=== PATIENT | female | born 1950 | race Caucasian/White ===

== ENCOUNTER 2016-12-10 12:39 | Emergency (ER) | payer MEDICARE ==
[2016-12-10] MEDS ORDERED: NS 0.9% 1000 ML* 1,000 ML IV ONE (12:43)
[2016-12-10] MEDS ORDERED: ceFAZolin VIAL(*) 1 GM in NS 0.9% 50 ML* 50 ML IVPB ONE (12:46)
[2016-12-10 13:17] LABS: Hematocrit 32 % (35-47); Hemoglobin 10.8 g/dl (12.0-16.0); Mean Corpuscular HGB Conc 34 g/dl (31-36); Mean Corpuscular Hemoglobin 31 pg (27-31); Mean Corpuscular Volume 91 fL (80-97); Mean Platelet Volume 8 um3 (7.4-10.4); Red Cell Distribution Width 13 % (10.5-15); White Blood Count 16.3 10^3/ul (3.5-10.8)
--- NOTE | 2016-12-10 13:27 | ED ---
Kev Chand Rebecca, scribed for Adonis Leon MD on 12/10/16 at 1252 . 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 Per EMS , pt used a steak knife to induce lacerations to the R side of the neck and L wrist at 0930 this morning. Per EMS, there is no active bleeding. Associated pain is currently mild, ranked 3/10. Upon EMS arrival, pt wounds had towels and pressure applied, which alleviated bleeding. Sx aggravated by nothing. Pt denies SOB. PMHx anxiety and depression. - History of Current Complaint Stated Complaint: ANXIETY Time Seen by Provider: 12/10/16 12:43 Hx Obtained From: Patient, EMS Mechanism of Injury: Sharp/Blunt Trauma - self harm with knife Onset/Duration: Sudden Onset - 0930 Aggravating: Nothing Alleviating: Compression, Other - Towels Onset Severity: Mild Current Severity: Mild Pain Intensity: 3 Pain Scale Used: 0-10 Numeric PMH/Surg Hx/FS Hx/Imm Hx Cardiovascular History: Reports: Hx Hypertension Psychiatric History: Reports: Hx Anxiety, Hx Depression Review of Systems Negative: Shortness Of Breath Positive: Other - Lacerations to the R side of the neck and L wrist All Other Systems Reviewed And Are Negative: Yes Physical Exam - Summary Physical Exam Summary: Gen: well-appearing, no pain distress Skin: warm, color reflects adequate perfusion, dry. Laceration 6 cm in length on left wrist, can see tendons. Capillary refill in the fingers normal. On the neck there is an 8 cm laceration in length, through subcutaneous tissue and can see underlying muscle. Head: normal Eyes: EOMI, ANKUR ENT: normal Neck: supple Resp: CTA, breath sounds present Cardio: RRR Abd: soft, nontender Bowel: present Musc: normal, strength/ROM intact Neuro: normal, sensory/motor intact, A&O x3 Psych: affect/mood appropriate Triage Information Reviewed: Yes Vital Signs On Initial Exam: Initial Vitals Temp Pulse Resp BP Pulse Ox 96.7 F 57 16 109/79 97 12/10/16 12:40 12/10/16 12:40 12/10/16 12:40 12/10/16 12:40 06/03/17 12:40 Vital Signs Reviewed: Yes Diagnostics - Vital Signs Vital Signs Temp Pulse Resp BP Pulse Ox 12/10/16 13:05 65 18 116/62 100 12/10/16 12:40 96.7 F 57 16 109/79 97 - Laboratory Lab Results: Lab Results 12/10/16 Range/Units 13:08 Blood Type Pending Antibody Screen Pending Crossmatch See Detail Lab Statement: Any lab studies that have been ordered have been reviewed, and results considered in the medical decision making process. Laceration Repair Course/Dx - Course Assessment/Plan: Pt is a 66 y/o F BIBA who p/w self-induced lacerations to the R side of the neck and a L wrist. 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 She was administered Ns and Kafzol IV in the course of the ED. Discussed care of pt with [facility], who accepts pt for transfer and she will be flown to their site. Discussed pt with Blood Bank at [facility], requesting 4 units of universal donor blood. Pt stable for transfer, ED records accompanying patient. BLEEDING CONTOLLED BY PRESSURE DRESSING. ACCEPTED IN TRANSFER AT [facility] BY DR WINTER, ED. TRANSFER GUARDED CONDITION. - Clinical Impression Provider Diagnoses: Suicide attempt, Arterial hemorrhage, Laceration of neck - Physician Notifications Discussed Care Of Patient With: [facility] - Accepted pt as a transfer, she will be flown to [facility] Time Discussed With Above Provider: 13:07 - Critical Care Time Critical Care Time: 30-74 min Discharge - Discharge Plan Condition: Guarded Disposition: TRANS HIGHER LVL OF CARE FAC Referrals: Kale Rodríguez, MASTER CHEF [Primary Care Provider] - The documentation as recorded by the Kev pritchett Rebecca accurately reflects the service I personally performed and the decisions made by me, Adonis Leon MD.
[2016-12-10 13:34] LABS: ALT 12 U/L (7-52); AST 16 U/L (13-39); Albumin 3.4 g/dL (3.2-5.2); Alkaline Phosphatase 69 U/L (34-104); Anion Gap 12 mmol/L (2-11); BUN/Creatinine Ratio 12.9 (8-20); Blood Urea Nitrogen 11 mg/dL (6-24); C Reactive Protein 1.02 mg/L (< 5.00); CO2 Carbon Dioxide 21 mmol/L (22-32); Calcium 8.4 mg/dL (8.6-10.3); Chloride 93 mmol/L (101-111); Creatine Kinase 50 U/L (10-223); EGFR African American 86.1 (>60); EGFR Non-African American 66.9 (>60); Globulin 2.1 g/dL (2-4); Glucose 223 mg/dL (70-100); Lipase 26 U/L (11.0-82.0); Magnesium 1.9 mg/dL (1.9-2.7); Potassium 3.5 mmol/L (3.5-5.0); Sodium 126 mmol/L (133-145); Total Protein 5.5 g/dL (6.4-8.9)
[2016-12-10 13:40] LABS: Acetaminophen < 15 mcg/mL; Alcohol < 10 mg/dL (<10); Salicylate < 2.50 mg/dL (<30)
[2016-12-10 13:44] VITALS: BP 130/57
[2016-12-10 13:51] LABS: TSH (Thyroid Stimulating Horm) 12.44 mcIU/mL (0.34-5.60)
[2016-12-10 14:19] LABS: Urine Bacteria 1+ (Absent); Urine Bilirubin Negative (Negative); Urine Glucose 1+(50 mg/dL) (Negative); Urine Nitrite Negative (Negative)
[2016-12-10 14:21] LABS: Benzodiazepine Urine Screen None Detected (None Detect)
== END 2016-12-10 14:00 | disposition short-term general hospital (02) ==
LOC: ED 12:39
DX: S11.91XA Laceration without foreign body of unspecified part of neck, initial encounter (principal); T14.91 Suicide attempt; S61.512A Laceration without foreign body of left wrist, initial encounter; X78.1XXA Intentional self-harm by knife, initial encounter; Y93.9 Activity, unspecified; Y92.9 Unspecified place or not applicable; X58.XXXA Exposure to other specified factors, initial encounter
CPT/HCPCS: 36415; 80053; 80307; 80320; 80329; 81003; 81015; 82550; 82553; 83605; 83690; 83735; 83880; 84443; 84484; 85025; 85610; 85730; 86140; 86850; 86900; 86901; 86922; 87077; 87086; 99285; G0480; P9040

== ENCOUNTER 2017-08-30 17:48 | Emergency (ER) | payer MEDICARE ==
[2017-08-30 19:26] LABS: Urine Appearance Clear; Urine Blood Negative (Negative); Urine Color Yellow; Urine Ketones Negative (Negative); Urine Protein Negative (Negative); Urine Specific Gravity 1.009 (1.010-1.030); Urine Urobilinogen Negative (Negative)
[2017-08-30 19:40] LABS: ABS Basophils 0 10^3/ul (0-0.2); ABS Eosinophils 0.1 10^3/ul (0-0.6); ABS Lymphocytes 1.2 10^3/ul (1.0-4.8); ABS Monocytes 0.4 10^3/ul (0-0.8); ABS Neutrophils 3.5 10^3/ul (1.5-7.7); ABS Nucleated RBC 0 10^3/ul; Eosinophil % 1.5 % (0-6); Hematocrit 39 % (35-47); Hemoglobin 13.5 g/dl (12.0-16.0); Lymphocyte % 22.6 % (25-47); Mean Corpuscular HGB Conc 35 g/dl (31-36); Mean Corpuscular Hemoglobin 32 pg (27-31); Mean Corpuscular Volume 91 fL (80-97); Mean Platelet Volume 7 um3 (7.4-10.4); Nucleated Red Blood Cells % 0; Platelet Count 235 10^3/ul (150-450); Red Blood Count 4.26 10^6/ul (4.0-5.4); Red Cell Distribution Width 13 % (10.5-15); White Blood Count 5.2 10^3/ul (3.5-10.8)
[2017-08-30 19:54] LABS: EGFR Non-African American 94.5 (>60)
[2017-08-30] MEDS ORDERED: NS 0.9% 1000 ML* 1,000 ML IV ONE (20:01)
--- NOTE | 2017-08-30 21:51 | ED ---
Lit Chand Julia, scribed for Sohail Leary on 08/30/17 at 1857 . Psychiatric Complaint - HPI Summary HPI Summary: This patient is a 66 year old F presenting to [facility] due to reoccurring SI for the past year. She claims she does not have a current plan. She reports a hx of self harm where she cut her L wrist and neck in December of 2016. She brought herself her to be evaluated. She denies drug or etoh intoxication. - History Of Current Complaint Chief Complaint: EDMentalHealth Time Seen by Provider: 08/30/17 18:37 Hx Obtained From: Patient Onset/Duration: Other - months Timing: Intermittent Episode Lasting Character: Depressed Related History: Positive For: Prior Psychiatric Issues - SI with gesture Has Suicidal: Reports: Thoughts, Has Prior Attempt(s). Denies: With A Plan - Allergies/Home Medications Home Medications: Home Medications QUEtiapine TAB* [SEROquel TAB*] 25 - 50 mg PO BEDTIME 08/30/17 [History Confirmed 08/30/17] QUEtiapine TAB* [SEROquel TAB*] 25 - 50 mg PO QAM 08/30/17 [History Confirmed ] Venlafaxine EXT RELEASE CAP* [Effexor Xr CAP*] 75 mg PO DAILY 08/30/17 [History Confirmed 08/30/17] clonazePAM TAB(*) [KlonoPIN TAB(*)] 1.5 mg PO BEDTIME MDD 1.5 08/30/17 [History Confirmed 08/30/17] PMH/Surg Hx/FS Hx/Imm Hx Cardiovascular History: Reports: Hx Hypertension Psychiatric History: Reports: Hx Anxiety, Hx Depression Infectious Disease History: No Infectious Disease History: Denies: Traveled Outside the [place] in Last 30 Days - Family History Family History: Patient denies pertinent family medical history. - Social History Alcohol Use: None Substance Use Type: Reports: None Smoking Status (MU): Never Smoked Tobacco Review of Systems Constitutional: Negative - drug or etoh intoxication Positive: Depressed All Other Systems Reviewed And Are Negative: Yes Physical Exam - Summary Physical Exam Summary: Appearance: Well appearing, no pain distress Skin: warm, dry, reflects adequate perfusion Head/face: normal Eyes: EOMI, ANKUR ENT: normal Neck: supple, non-tender Respiratory: CTA, breath sounds present Cardiovascular: RRR, pulses symmetrical Abdomen: non-tender, soft Bowel: present Musculoskeletal: normal, strength/ROM intact Neuro: normal, sensory motor intact, A&Ox3 Psychiatric: depressed affect Triage Information Reviewed: Yes Vital Signs On Initial Exam: Initial Vitals Temp Pulse Resp BP Pulse Ox 98.5 F 74 18 161/89 98 08/30/17 17:51 08/30/17 17:51 08/30/17 17:51 08/30/17 17:51 08/30/17 17:51 Vital Signs Reviewed: Yes Diagnostics - Vital Signs Vital Signs Temp Pulse Resp BP Pulse Ox 08/30/17 17:51 98.5 F 74 18 161/89 98 - Laboratory Result Diagrams: 08/30/17 19:23 08/30/17 19:23 Lab Statement: Any lab studies that have been ordered have been reviewed, and results considered in the medical decision making process. Course/Dx - Course Course Of Treatment: Patient states reoccurring SI for the past year. She claims she does not have a current plan. She reports a hx of self harm where she cut her L wrist and neck in December of 2016. She brought herself her to be evaluated. She denies drug or etoh intoxication. Bloodwork was collected and patient is cleared for mental health evaluation. - Differential Dx/Clinical Impression Provider Diagnosis: Depression, Suicidal ideation Discharge - Discharge Plan Condition: Stable Disposition: OTHER Discharge Disposition Comment: Patient is signed out to Dr. Hensley at shift change. Referrals: Kale Rodríguez, ADMINISTRATIVE FELLOW [Primary Care Provider] - The documentation as recorded by the Lit pritchett Julia accurately reflects the service I personally performed and the decisions made by , Sohail Leary.
--- NOTE | 2017-08-30 22:21 | ED ---
Progress - Progress Note Progress Note: assumed care from Dr Leary. Pt undergoing eval. 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 Course/Dx - Course Course Of Treatment: Patient states reoccurring SI for the past year. She claims she does not have a current plan. She reports a hx of self harm where she cut her L wrist and neck in December of 2016. She brought herself her to be evaluated. She denies drug or etoh intoxication. Bloodwork was collected and patient is cleared for mental health evaluation. Pt cleared in for discharge by Dr Bianchi. Has 3 upcoming therapy appts in the near future. Discharge in improved condition. - Diagnoses Provider Diagnoses: Depression, Suicidal ideation
[2017-08-30 22:59] VITALS: BP 98/75
== END 2017-08-30 22:55 | disposition home or self-care (01) ==
LOC: ED 17:48
DX: F32.9 Major depressive disorder, single episode, unspecified (principal); R45.851 Suicidal ideations; I10 Essential (primary) hypertension; F41.9 Anxiety disorder, unspecified
CPT/HCPCS: 36415; 80053; 80307; 80320; 80329; 81003; 81015; 84443; 85025; 87086; 96360; 99284; G0480

== ENCOUNTER 2018-01-28 18:04 | Emergency (ER) | payer MEDICARE ==
[2018-01-28 18:56] LABS: ABS Basophils 0 10^3/ul (0-0.2); ABS Eosinophils 0.1 10^3/ul (0-0.6); ABS Lymphocytes 0.9 10^3/ul (1.0-4.8); ABS Monocytes 0.3 10^3/ul (0-0.8); ABS Neutrophils 4.9 10^3/ul (1.5-7.7); ABS Nucleated RBC 0 10^3/ul; Eosinophil % 0.8 % (0-6); Hematocrit 38 % (35-47); Hemoglobin 13.3 g/dl (12.0-16.0); Lymphocyte % 14.9 % (25-47); Mean Corpuscular HGB Conc 35 g/dl (31-36); Mean Corpuscular Hemoglobin 32 pg (27-31); Mean Corpuscular Volume 93 fL (80-97); Mean Platelet Volume 6.5 um3 (7.4-10.4); Nucleated Red Blood Cells % 0; Platelet Count 255 10^3/ul (150-450); Red Blood Count 4.11 10^6/ul (4.00-5.40); Red Cell Distribution Width 13 % (10.5-15); White Blood Count 6.2 10^3/ul (3.5-10.8)
[2018-01-28 19:12] LABS: EGFR Non-African American 83.5 (>60)
--- OUTSIDE RECORDS SUMMARY | 2018-01-28 19:36 | XMS REPORT ---
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 Cigarette Use Former Cigarette Smoker smoked through college, nothing since then ETOH Use Denies alcohol use Recreational Drug Use Denies Drug Use some drug use in college Daily Caffeine Does Not Consume Caffeine Enjoy Exercising Enjoys exercising 10 MINUTES OF YOGA AND REBOUND EXERCISES, TRIES TO WALK MOST MORNINGS, GARDENING Allergies, Adverse Reactions, Alerts Date Description Reaction Status Severity Comments 12/16/2013 Novocain Urticaria active Moderate 12/16/2013 Preservative active 12/16/2013 Epinephrine active 12/16/2013 Aspirin active 12/16/2013 Sulfa active Medications Medication Date Status Form Strength Qnty SIG Indications Ordering Provider Metoprolol 01/04 Active Tablets 50mg 60tab take 1 tablet Shawnti Tartrate s twice a day Russel Rodríguez, for blood [facility] pressure Polyethylene 10/23 Active Powder 3350NF 527un 1 cap full in K59.00 Shawnti Glycol 335 its glass of Russel Rodríguez, water twice [facility] daily Magnesium 10/20 Active Solution 1.745GM/3 296ml drink one Shawnti Citrate 0ML bottle today Russel Rodríguez, for [facility] constipation Immune Enhance 12/16 Active Tablets Russel Rodríguez, [facility] Probiotic Active Capsules 1 by mouth Unknown /0000 every day Vitamin B-12 Active Tablets 1000mcg 1 by mouth Unknown /0000 every day- sublingual- for vitamin b12 deficiency Kelp Active Tablets 100mg Unknown /0000 Clonazepam Active Tablets 1mg Take 1 And Unknown /0000 1/2 Tablet By Mouth AT Bedtime as Needed For Insomnia Maxi Sodium Chloride Active Tablets 1gm 270ta take one Shawnti / bs tablet by Russel Rodríguez, mouth three [employer] times a day Venlafaxine HCL Active Caps ER 300mg Take One Unknown ER / 24HR Capsule By Mouth Every Morning Senna Active Tablets 8.6mg 60tab take one Shawnti s tablet by Russel Rodríguez, mouth twice a [facility] day Quetiapine Active Tablets 100mg Take 1 1 2 Unknown Fumarate /0000 Tablets By Mouth AT Bedtime Mirtazapine Active Tablets 15mg Take One Unknown /0000 Tablet By Mouth AT Bedtime Metoprolol 12/12 Hx Tablets 25mg 60tab take one Shawnti Tartrate s tablet by Russel Rodríguez, - mouth twice a [employer] 01/04 day for heart /2018 and blood pressure....r eplaces propranolol Propranolol HCL 11/23 Hx Caps ER 60mg 30cap 1 by mouth Shawnti ER 24HR s every day Russel Rodríguez, - [facility] 12/12 Trazodone HCL 11/25 Hx Tablets 50mg 30tab take 1 tablet F41.9 Ajya s by mouth at Russel Rodríguez, - bedtime for [facility] 12/29 sleep Zinc 11/18 Hx Tablets 25mg 1 by mouth every day Russel Rodríguez, - [facility] 09/22 Citalopram 11/18 Hx Tablets 10mg 30tab take one F41.9 Shawnti Hydrobromide /2016 s tablet by Russel Rodríguez, - mouth every [employer] 12/29 day for anxiety Nitrofurantoin 10/21 Hx Capsules 100mg 14cap 1 by mouth N39.0 Shawnti Monohyd Macro s twice a day x Russel Rodríguez, - 7 days [employer] 10/28 Citalopram 08/19 Hx Tablets 20mg 90tab 1 by mouth F41.9 Shawnti Hydrobromide s every day Russel Rodríugez, - [facility] 11/18 Lorazepam 08/12 Hx Tablets 1mg 45tab take one tab F41.9 Shawnti /2016 s up to three Russel Rodríguez, - times daily [facility] 12/29 if needed for anxiety Fluoxetine HCL 08/01 Hx Capsules 20mg 90cap 1 by mouth F41.9 Shawnti (PMDD) /2016 s daily for Russel Rodríguez, - anxiety, [facility] 10/21 replaces citalopram L-Tryptophan 06/28 Hx Tablets 500mg 1 po before bed Russel Rodríguez, - [facility] 11/23 Macrobid 05/06 Hx Capsules 100mg 10cap take one Kris s capsule by Niall - mouth twice a , MD Ciprofloxacin 04/29 Hx Tablets 250mg 10tab 1 by mouth N39.0 Kanu HCL /2015 s twice a day [place] - for 5 days III, 06/28 for uti [facility] Lorazepam 01/17 Hx Tablets 0.5mg 45tab 1 or 2 by F41.9 Shawnti s mouth every Russel Rodríguez, - night at [facility]- 08/12 bedtime for sleep if needed Citalopram 11/25 Hx Tablets 20mg 90tab 1 by mouth F41.9 Shawnti Hydrobromide s every day Russel Rodríguez, - [facility] 08/01 Lorazepam 11/05 Hx Tablets 1mg 45tab take one or F41.9 Shawnt /2015 s two by mouth Russel Rodríguez, - every night [facility] 01/17 at bedtime needed for anxiety Seroquel 11/04 Hx Tablets 50mg 30tab take one G47.00 Shawnt s tablet by Russel Rodríguez, - mouth at [facility]- 11/04 bedtime Trazodone HCL 11/04 Hx Tablets 50mg 30tab take 1 G47.00 nt s tablet by Russel Rodríguez, - mouth at [facility] 11/05 bedtime needed for sleep Citalopram 10/26 Hx Tablets 10mg 30tab 07/11 tab daily F41.9 Shawnti Hydrobromide s for 4 days Russel Rodríguez, - then increase [facility] 11/25 to one tab mouth daily Ativan 10/19 Hx Tablets 0.5mg 30tab 07/11 or 1 F41.9 Shawnt s pills before Russel Rodríguez, - bed if needed [facility] 11/05 for sleep /2015 Hydrocortisone 12/16 Hx Cream 1% apply small amount to Russel Rodríguez, - affected area [facility] 10/21 twice a day /2016 Iron 00/ Hx Tablets 325(65Fe) Twice Daily Unknown /0000 mg By Mouth - 12/29 Vitamin B12 Hx Tablets 1000mcg sl every day Unknown /0000 ER - 12/29 Folic Acid 00 Hx Tablets 1mg 1 by mouth Unknown /0000 every day - 09/22 Cortisol Coffee Host 00/00 Hx Tablets Unknown /0000 - 09/22 Hydroxyzine HCL 00 Hx Tablets 25mg Take One Unknown /0000 Tablet By - Mouth Every 4 12/29 Hours Needed For Itching And Anxie Risperidone 00 Hx Tablets 0.5mg Take One Unknown /0000 Tablet By - Mouth AT 12/29 Bed Ferrous Sulfate 00 Hx Tablets 325(65Fe) 270ta take one Shawnti /0000 mg bs tablet by Russel Rodríguez, - mouth three [facility] 09/22 times a day Cephalexin Hx Capsules 500mg Take One Unknown /0000 Capsule By - Mouth Four 12/29 Times A Day Propranolol HCL Hx Tablets 20mg 30tab take one Shawnti /0000 s tablet by Russel Rodríguez, - mouth every [facility] Immunizations CPT Code Status Date Vaccine Lot # [id number] Refused 12/12/2017 Influenza Virus Vaccine, Quadrivalent, 3 Yr > Quad , Preserv Free Vital Signs Date Vital Result Comment 01/04/2018 Weight 114.00 lb Weight in kg's 51.710 BP Systolic 152 mmHg BP Diastolic 84 mmHg Heart Rate 68 /min Body Temperature 97.2 F Respiratory Rate 14 /min 12/12/2017 Weight 113.00 lb Weight in kg's 51.257 BP Systolic 120 mmHg BP Diastolic 70 mmHg Heart Rate 70 /min Body Temperature 98.0 F Respiratory Rate 14 /min 11/23/2017 Weight 112.00 lb Weight in kg's 50.803 BP Systolic 130 mmHg BP Diastolic 90 mmHg Heart Rate 65 /min Body Temperature 98.6 F Respiratory Rate 16 /min O2 % BldC Oximetry 98 % 11/18/2017 Weight 111.00 lb Weight in kg's 50.350 BP Systolic 144 mmHg BP Diastolic 86 mmHg Heart Rate 56 /min Body Temperature 97.0 F O2 % BldC Oximetry 97 % 10/23/2017 Weight 110.00 lb Weight in kg's 49.896 BP Systolic 148 mmHg BP Diastolic 82 mmHg Body Temperature 97.0 F 03/27/2017 Weight 119.00 lb Weight in kg's 53.978 BP Systolic 130 mmHg BP Diastolic 70 mmHg Heart Rate 72 /min Body Temperature 97.9 F Respiratory Rate 14 /min 12/29/2016 Weight 125.00 lb Weight in kg's 56.700 BP Systolic 148 mmHg BP Diastolic 80 mmHg Heart Rate 77 /min Body Temperature 97.1 F Respiratory Rate 18 /min O2 % BldC Oximetry 99 % 12/02/2016 Weight 126.00 lb Weight in kg's 57.154 BP Systolic 168 mmHg BP Diastolic 88 mmHg BP Systolic Recheck 154 mmHg BP Diastolic Recheck 88 mmHg Heart Rate 66 /min Body Temperature 97.5 F Respiratory Rate 12 /min O2 % BldC Oximetry 99 % 11/25/2016 Weight 127.00 lb Weight in kg's 57.607 BP Systolic 150 mmHg BP Diastolic 80 mmHg Heart Rate 72 /min Body Temperature 96.5 F Respiratory Rate 12 /min 11/18/2016 Weight 131.00 lb Weight in kg's 59.422 BP Systolic 140 mmHg BP Diastolic 98 mmHg Heart Rate 60 /min Body Temperature 96.4 F Respiratory Rate 16 /min O2 % BldC Oximetry 99 % 10/21/2016 Weight 131.00 lb Weight in kg's 59.422 BP Systolic 138 mmHg BP Diastolic 86 mmHg Heart Rate 62 /min Body Temperature 98.6 F Respiratory Rate 14 /min O2 % BldC Oximetry 99 % 08/01/2016 Weight 135.00 lb Weight in kg's 61.236 BP Systolic 152 mmHg BP Diastolic 88 mmHg Heart Rate 68 /min Body Temperature 97.5 F Respiratory Rate 16 /min O2 % BldC Oximetry 99 % 06/28/2016 Weight 137.00 lb Weight in kg's 62.143 BP Systolic 152 mmHg no BP med BP Diastolic 78 mmHg no BP med Heart Rate 66 /min Body Temperature 98.1 F Respiratory Rate 17 /min O2 % BldC Oximetry 98 % 04/29/2016 Weight 140.00 lb Weight in kg's 63.504 BP Systolic 152 mmHg BP Diastolic 86 mmHg Heart Rate 60 /min Body Temperature 96.5 F Respiratory Rate 18 /min 04/26/2016 Weight 140.00 lb Weight in kg's 63.504 BP Systolic 170 mmHg BP Diastolic 80 mmHg Heart Rate 76 /min 03/15/2016 Weight 138.00 lb Weight in kg's 62.597 BP Systolic 160 mmHg BP Diastolic 80 mmHg Heart Rate 68 /min 02/12/2016 Weight 138.00 lb Weight in kg's 62.597 BP Systolic 180 mmHg BP Diastolic 90 mmHg Heart Rate 64 /min 01/12/2016 Weight 140.00 lb Weight in kg's 63.504 BP Systolic 180 mmHg BP Diastolic 90 mmHg Heart Rate 72 /min Body Temperature 98.6 F 12/11/2015 Weight 144.00 lb Weight in kg's 65.318 BP Systolic 162 mmHg BP Diastolic 97 mmHg Heart Rate 65 /min O2 % BldC Oximetry 98 % 11/26/2015 Weight 145.00 lb Weight in kg's 65.772 BP Systolic 130 mmHg BP Diastolic 80 mmHg Heart Rate 63 /min Body Temperature 97.1 F O2 % BldC Oximetry 99 % 11/12/2015 Weight 146.00 lb Weight in kg's 66.226 BP Systolic 140 mmHg BP Diastolic 80 mmHg Heart Rate 60 /min 11/05/2015 Weight 149.00 lb Weight in kg's 67.586 BP Systolic 160 mmHg BP Diastolic 78 mmHg Heart Rate 68 /min 10/27/2015 Weight 149.00 lb Weight in kg's 67.586 BP Systolic 120 mmHg BP Diastolic 70 mmHg Heart Rate 68 /min 10/20/2015 Weight 147.00 lb Weight in kg's 66.679 BP Systolic 148 mmHg BP Diastolic 78 mmHg Heart Rate 68 /min 03/24/2015 Weight 153.00 lb Weight in kg's 69.401 BP Systolic 166 mmHg BP Diastolic 84 mmHg Heart Rate 68 /min Height 69.5 inches 5'9.50" BMI (Body Mass Index) 22.3 kg/m2 03/06/2015 Weight 150.00 lb Weight in kg's 68.040 BP Systolic 140 mmHg BP Diastolic 84 mmHg Heart Rate 68 /min 12/16/2013 Weight 153.00 lb Weight in kg's 69.401 BP Systolic 110 mmHg BP Diastolic 70 mmHg Heart Rate 72 /min Height 68.25 inches 5'8.25" BMI (Body Mass Index) 23.1 kg/m2 11/27/2008 Weight 164.00 lb Weight in kg's 74.390 BP Systolic 120 mmHg BP Diastolic 70 mmHg Heart Rate 84 /min Height 69.5 inches 5'9.50" BMI (Body Mass Index) 23.9 kg/m2 Results Test Date Test Result H/L Range Note Urine Culture And 11/18/2017 Urine Culture SEE RESULT BELOW 1 Sensitivities Urine DIP 11/18/2017 Leukocytes ++ Neg Urine Nitrites neg Neg Urobilinogen norm Norm Total Protein, Urine neg Neg Urine pH 8 High 5-6 Urine Blood 250 High Neg Specific Council 1.010 1.01-1.02 Urine Ketones neg Neg Urine Bilirubin neg Neg Urine Glucose norm Norm Urinalysis Profile 09/26/2017 Urine Color Yellow Urine Appearance Clear Urine Specific Council 1.006 Low 1.010-1.030 Urine pH 6.0 5-9 Urine Urobilinogen Negative Negative Urine Ketones Trace Negative Urine Protein Negative Negative Urine Leukocytes 3+ Negative Urine Blood Negative Negative Urine Nitrite Negative Negative Urine Bilirubin Negative Negative Urine Glucose Negative Negative Urine White Blood Cell 3+(>20/hpf) Absent Urine Red Blood Cell Absent Absent Urine Bacteria Absent Absent Urine Squamous Epithelial Cell Present Absent Urine Drug SCR ED & 09/26/2017 Amphetamine Ur Screen None Detected None Detect Pain Clinic Barbiturates Urine Screen None Detected None Detect Benzodiazepine Urine Screen None Detected None Detect Urine Cannabinoids Screen None Detected None Detect Urine Cocaine Screen None Detected None Detect Urine Opiates Screen None Detected None Detect Urine Phencyclidine Screen None Detected None Detect 2 Urine Culture And Sensitivities 09/26/2017 Urine Culture SEE RESULT BELOW 3 Laboratory test finding 08/30/2017 Urine Culture SEE RESULT BELOW 4 Urinalysis Profile 08/30/2017 Urine Color Yellow Urine Appearance Clear Urine Specific Council 1.009 Low 1.010-1.030 Urine pH 7.0 5-9 Urine Urobilinogen Negative Negative Urine Ketones Negative Negative Urine Protein Negative Negative Urine Leukocytes Trace Negative Urine Blood Negative Negative Urine Nitrite Negative Negative Urine Bilirubin Negative Negative Urine Glucose Negative Negative Urine White Blood Cell 1+(6-10/hpf) Absent Urine Red Blood Cell Trace(0-2/hpf) Absent Urine Bacteria Absent Absent Urine Squamous Epithelial Cell Present Absent Urine Drug SCR ED & 08/30/2017 Amphetamine Ur Screen None Detected None Detect Pain Clinic Barbiturates Urine Screen None Detected None Detect Benzodiazepine Urine Screen None Detected None Detect Urine Cannabinoids Screen None Detected None Detect Urine Cocaine Screen None Detected None Detect Urine Opiates Screen None Detected None Detect Urine Phencyclidine Screen None Detected None Detect 5 Laboratory test finding 08/30/2017 Acetaminophen < 15 g/mL 6 Alcohol < 10 mg/dL <10 Salicylate < 2.50 mg/dL <30 TSH (Thyroid Stimulating Horm) 5.06 mcIU/mL 0.34-5.60 Comp Metabolic Panel 08/30/2017 Sodium 126 mmol/L Low 133-145 Potassium 4.5 mmol/L 3.5-5.0 Chloride 92 mmol/L Low 101-111 Co2 Carbon Dioxide 28 mmol/L 22-32 Anion Gap 6 mmol/L 2-11 Glucose 101 mg/dL High 70-100 Blood Urea Nitrogen 11 mg/dL 6-24 Creatinine 0.63 mg/dL 0.51-0.95 BUN/Creatinine Ratio 17.5 8-20 Calcium 9.3 mg/dL 8.6-10.3 Total Protein 7.0 g/dL 6.4-8.9 Albumin 4.4 g/dL 3.2-5.2 Globulin 2.6 g/dL 2-4 Albumin/Globulin Ratio 1.7 1-3 Total Bilirubin 0.40 mg/dL 0.2-1.0 Alkaline Phosphatase 88 U/L 34-104 Alt 10 U/L 7-52 Ast 18 U/L 13-39 Egfr Non- 94.5 >60 Egfr 121.6 >60 7 CBC Auto Diff 08/30/2017 White Blood Count 5.2 10^3/uL 3.5-10.8 Red Blood Count 4.26 10^6/uL 4.0-5.4 Hemoglobin 13.5 g/dL 12.0-16.0 Hematocrit 39 % 35-47 Mean Corpuscular Volume 91 fL 80-97 Mean Corpuscular Hemoglobin 32 pg High 27-31 Mean Corpuscular HGB Conc 35 g/dL 31-36 Red Cell Distribution Width 13 % 10.5-15 Platelet Count 235 10^3/uL 150-450 Mean Platelet Volume 7 um3 Low 7.4-10.4 Abs Neutrophils 3.5 10^3/uL 1.5-7.7 Abs Lymphocytes 1.2 10^3/uL 1.0-4.8 Abs Monocytes 0.4 10^3/uL 0-0.8 Abs Eosinophils 0.1 10^3/uL 0-0.6 Abs Basophils 0 10^3/uL 0-0.2 Abs Nucleated RBC 0 10^3/uL Granulocyte % 67.5 % 38-83 Lymphocyte % 22.6 % Low 25-47 Monocyte % 7.5 % 1-9 Eosinophil % 1.5 % 0-6 Basophil % 0.9 % 0-2 Nucleated Red Blood Cells % 0 Comp Metabolic Panel 05/19/2017 Sodium 130 mmol/L Low 133-145 Potassium 3.8 mmol/L 3.5-5.0 Chloride 95 mmol/L Low 101-111 Co2 Carbon Dioxide 31 mmol/L 22-32 Anion Gap 4 mmol/L 2-11 Glucose 57 mg/dL Low 70-100 Blood Urea Nitrogen 7 mg/dL 6-24 Creatinine 0.61 mg/dL 0.51-0.95 BUN/Creatinine Ratio 11.5 8-20 Calcium 8.7 mg/dL 8.6-10.3 Total Protein 6.2 g/dL Low 6.4-8.9 Albumin 3.9 g/dL 3.2-5.2 Globulin 2.3 g/dL 2-4 Albumin/Globulin Ratio 1.7 1-3 Total Bilirubin 0.60 mg/dL 0.2-1.0 Alkaline Phosphatase 89 U/L 34-104 Alt 8 U/L 7-52 Ast 15 U/L 13-39 Egfr Non- 98.1 >60 Egfr 126.2 >60 8 Sodium 24HR Urine 03/31/2017 Urine Collection Time 24 9 Urine Total Volume 4700 mL 9 Urine Random Sodium 33 mmol/L 9 Urine Sodium/24HR 155 mmol/24 40-220 9 Laboratory test finding 03/31/2017 Miscellaneous Test C 9, 10 Laboratory test finding 03/27/2017 Ferritin 26.4 ng/mL 11-307 11 Iron & Iron Binding Capacity 03/27/2017 Iron 67 g/dL 50-212 Unsaturated Iron Binding 296 g/dL Total Iron Binding Capacity 363 g/dL 250-450 % Iron Saturation 18 % 15-55 Laboratory test finding 03/27/2017 Magnesium 2.1 mg/dL 1.9-2.7 12 Comp Metabolic Panel 03/27/2017 Sodium 128 mmol/L Low 133-145 Potassium 3.9 mmol/L 3.5-5.0 Chloride 96 mmol/L Low 101-111 Co2 Carbon Dioxide 27 mmol/L 22-32 Anion Gap 5 mmol/L 2-11 Glucose 94 mg/dL 70-100 Blood Urea Nitrogen 11 mg/dL 6-24 Creatinine 0.59 mg/dL 0.51-0.95 BUN/Creatinine Ratio 18.6 8-20 Calcium 9.0 mg/dL 8.6-10.3 Total Protein 6.2 g/dL Low 6.4-8.9 Albumin 4.0 g/dL 3.2-5.2 Globulin 2.2 g/dL 2-4 Albumin/Globulin Ratio 1.8 1-3 Total Bilirubin 0.40 mg/dL 0.2-1.0 Alkaline Phosphatase 103 U/L 34-104 Alt 9 U/L 7-52 Ast 17 U/L 13-39 Egfr Non- 102.0 >60 Egfr 131.2 >60 13 Laboratory test finding 03/27/2017 Hepatitis C Antibody Nonreactive Nonreactive 14 CBC Auto Diff 03/27/2017 White Blood Count 4.6 10^3/uL 3.5-10.8 Red Blood Count 4.21 10^6/uL 4.0-5.4 Hemoglobin 12.7 g/dL 12.0-16.0 Hematocrit 37 % 35-47 Mean Corpuscular Volume 88 fL 80-97 Mean Corpuscular Hemoglobin 30 pg 27-31 Mean Corpuscular HGB Conc 34 g/dL 31-36 Red Cell Distribution Width 13 % 10.5-15 Platelet Count 217 10^3/uL 150-450 Mean Platelet Volume 7 um3 Low 7.4-10.4 Abs Neutrophils 3.1 10^3/uL 1.5-7.7 Abs Lymphocytes 1.1 10^3/uL 1.0-4.8 Abs Monocytes 0.3 10^3/uL 0-0.8 Abs Eosinophils 0 10^3/uL 0-0.6 Abs Basophils 0 10^3/uL 0-0.2 Abs Nucleated RBC 0 10^3/uL Granulocyte % 67.1 % 38-83 Lymphocyte % 24.5 % Low 25-47 Monocyte % 7.5 % 1-9 Eosinophil % 0 % 0-6 Basophil % 0.9 % 0-2 Nucleated Red Blood Cells % 0 Laboratory test 03/27/2017 TSH (Thyroid Stim Horm) 3.55 mcIU/mL 0.34- 5.60 15 finding Lipid Profile 03/27/2017 Triglycerides 105 mg/dL 16 (Trig/Chol/HDL) Cholesterol 173 mg/dL 17 HDL Cholesterol 65.8 mg/dL 18 LDL Cholesterol 86 mg/dL 19 Laboratory test 03/27/2017 Hemoglobin A1c (Glyco 5.2 % Less than 6.0 20 finding HGB) Basic Metabolic Panel 02/03/2017 Sodium 127 mmol/L Low 133-145 Potassium 4.3 mmol/L 3.5-5.0 Chloride 91 mmol/L Low 101-111 Co2 Carbon Dioxide 31 mmol/L 22-32 Anion Gap 5 mmol/L 2-11 Glucose 77 mg/dL 70-100 Blood Urea Nitrogen 10 mg/dL 6-24 Creatinine 0.60 mg/dL 0.51-0.95 BUN/Creatinine Ratio 16.7 8-20 Calcium 8.7 mg/dL 8.6-10.3 Egfr Non- 100.0 >60 Egfr 128.6 >60 21 Laboratory test finding 02/03/2017 Ferritin 25.4 ng/mL 11-307 22 Iron & Iron Binding Capacity 02/03/2017 Iron 87 g/dL 50-212 Unsaturated Iron Binding 298 g/dL Total Iron Binding Capacity 385 g/dL 250-450 % Iron Saturation 23 % 15-55 CBC Auto Diff 02/03/2017 White Blood Count 6.4 10^3/uL 3.5-10.8 Red Blood Count 4.20 10^6/uL 4.0-5.4 Hemoglobin 13.1 g/dL 12.0-16.0 Hematocrit 38 % 35-47 Mean Corpuscular Volume 91 fL 80-97 Mean Corpuscular Hemoglobin 31 pg 27-31 Mean Corpuscular HGB Conc 34 g/dL 31-36 Red Cell Distribution Width 13 % 10.5-15 Platelet Count 239 10^3/uL 150-450 Mean Platelet Volume 8 um3 7.4-10.4 Abs Neutrophils 4.5 10^3/uL 1.5-7.7 Abs Lymphocytes 1.4 10^3/uL 1.0-4.8 Abs Monocytes 0.4 10^3/uL 0-0.8 Abs Eosinophils 0.1 10^3/uL 0-0.6 Abs Basophils 0.1 10^3/uL 0-0.2 Abs Nucleated RBC 0.01 10^3/uL Granulocyte % 69.5 % 38-83 Lymphocyte % 21.4 % Low 25-47 Monocyte % 6.6 % 1-9 Eosinophil % 1.7 % 0-6 Basophil % 0.8 % 0-2 Nucleated Red Blood Cells % 0.1 CBC Auto Diff 12/29/2016 White Blood Count 5.0 10^3/uL 3.5-10.8 Red Blood Count 3.32 10^6/uL Low 4.0-5.4 Hemoglobin 10.3 g/dL Low 12.0-16.0 Hematocrit 31 % Low 35-47 Mean Corpuscular Volume 92 fL 80-97 Mean Corpuscular Hemoglobin 31 pg 27-31 Mean Corpuscular HGB Conc 34 g/dL 31-36 Red Cell Distribution Width 14 % 10.5-15 Platelet Count 268 10^3/uL 150-450 Mean Platelet Volume 7 um3 Low 7.4-10.4 Abs Neutrophils 3.4 10^3/uL 1.5-7.7 Abs Lymphocytes 0.9 10^3/uL Low 1.0-4.8 Abs Monocytes 0.5 10^3/uL 0-0.8 Abs Eosinophils 0.1 10^3/uL 0-0.6 Abs Basophils 0.1 10^3/uL 0-0.2 Abs Nucleated RBC 0 10^3/uL Granulocyte % 68.6 % 38-83 Lymphocyte % 18.0 % Low 25-47 Monocyte % 9.4 % High 1-9 Eosinophil % 2.9 % 0-6 Basophil % 1.1 % 0-2 Nucleated Red Blood Cells % 0 Basic Metabolic Panel 12/29/2016 Sodium 129 mmol/L Low 133-145 Potassium 4.1 mmol/L 3.5-5.0 Chloride 96 mmol/L Low 101-111 Co2 Carbon Dioxide 28 mmol/L 22-32 Anion Gap 5 mmol/L 2-11 Glucose 94 mg/dL 70-100 Blood Urea Nitrogen 9 mg/dL 6-24 Creatinine 0.53 mg/dL 0.51-0.95 BUN/Creatinine Ratio 17.0 8-20 Calcium 8.4 mg/dL Low 8.6-10.3 Egfr Non- 115.4 >60 Egfr 148.4 >60 23 Laboratory test finding 12/10/2016 Urine Culture SEE RESULT BELOW 24, 25 Urinalysis Profile 12/10/2016 Urine Color Yellow 24 Urine Appearance Cloudy 24 Urine Specific Council 1.009 Low 1.010-1.030 24 Urine pH 7.0 5-9 24 Urine Urobilinogen Negative Negative 24 Urine Ketones Negative Negative 24 Urine Protein 1+(30 mg/dL) Negative 24 Urine Leukocytes 2+ Negative 24 Urine Blood 2+ Negative 24 Urine Nitrite Negative Negative 24 Urine Bilirubin Negative Negative 24 Urine Glucose 1+(50 mg/dL) Negative 24 Urine White Blood Cell 3+(>20/hpf) Absent 24 Urine Red Blood Cell 1+(3-5/hpf) Absent 24 Urine Bacteria 1+ Absent 24 Urine Squamous Epithelial Cell Present Absent 24 Urine Hyaline Casts Present Absent 24 Inr/Protime 12/10/2016 Inr 1.13 High 0.89-1.11 24 Laboratory test finding 12/10/2016 Acetaminophen < 15 g/mL 24, 26 Alcohol < 10 mg/dL <10 24 Salicylate < 2.50 mg/dL <30 24 TSH (Thyroid Stimulating Horm) 12.44 mcIU/mL High 0.34-5.60 24 CKMB 12/10/2016 CKMB ng/mL 4.5 ng/mL 0.6-6.3 24 Laboratory test finding 12/10/2016 Magnesium 1.9 mg/dL 1.9-2.7 24 Lipase 26 U/L 11.0-82.0 24 Creatine Kinase 50 U/L 10-223 24 C Reactive Protein 1.02 mg/L < 5.00 24, 27 Troponin-I (TnI) 0.00 ng/mL <0.04 24, 28 Comp Metabolic Panel 12/10/2016 Sodium 126 mmol/L Low 133-145 24 Potassium 3.5 mmol/L 3.5-5.0 24 Chloride 93 mmol/L Low 101-111 24 Co2 Carbon Dioxide 21 mmol/L Low 22-32 24 Anion Gap 12 mmol/L High 2-11 24 Glucose 223 mg/dL High 70-100 24 Blood Urea Nitrogen 11 mg/dL 6-24 24 Creatinine 0.85 mg/dL 0.51-0.95 24 BUN/Creatinine Ratio 12.9 8-20 24 Calcium 8.4 mg/dL Low 8.6-10.3 24 Total Protein 5.5 g/dL Low 6.4-8.9 24 Albumin 3.4 g/dL 3.2-5.2 24 Globulin 2.1 g/dL 2-4 24 Albumin/Globulin Ratio 1.6 1-3 24 Total Bilirubin 0.60 mg/dL 0.2-1.0 24 Alkaline Phosphatase 69 U/L 34-104 24 Alt 12 U/L 7-52 24 Ast 16 U/L 13-39 24 Egfr Non- 66.9 >60 24 Egfr 86.1 >60 24, 29 CBC Auto Diff 12/10/2016 White Blood Count 16.3 10^3/uL High 3.5-10.8 24 Red Blood Count 3.50 10^6/uL Low 4.0-5.4 24 Hemoglobin 10.8 g/dL Low 12.0-16.0 24 Hematocrit 32 % Low 35-47 24 Mean Corpuscular Volume 91 fL 80-97 24 Mean Corpuscular Hemoglobin 31 pg 27-31 24 Mean Corpuscular HGB Conc 34 g/dL 31-36 24 Red Cell Distribution Width 13 % 10.5-15 24 Platelet Count 274 10^3/uL 150-450 24 Mean Platelet Volume 8 um3 7.4-10.4 24 Abs Neutrophils 14.9 10^3/uL High 1.5-7.7 24 Abs Lymphocytes 0.8 10^3/uL Low 1.0-4.8 24 Abs Monocytes 0.6 10^3/uL 0-0.8 24 Abs Eosinophils 0 10^3/uL 0-0.6 24 Abs Basophils 0.1 10^3/uL 0-0.2 24 Abs Nucleated RBC 0 10^3/uL 24 Granulocyte % 91.3 % High 38-83 24 Lymphocyte % 4.6 % Low 25-47 24 Monocyte % 3.6 % 1-9 24 Eosinophil % 0.1 % 0-6 24 Basophil % 0.4 % 0-2 24 Nucleated Red Blood Cells % 0 24 Laboratory test 12/10/2016 Lactic Acid 3.4 mmol/L High 0.5-2.0 24, 30 finding Laboratory test 12/10/2016 Partial Thrombo 25.2 seconds Low 26.0-36.3 24 finding Time PTT Urine Drug SCR ED 12/10/2016 Amphetamine Ur None Detected None Detect 24 & Pain Clinic Screen Barbiturates Urine Screen None Detected None Detect 24 Benzodiazepine Urine Screen None Detected None Detect 24 Urine Cannabinoids Screen None Detected None Detect 24 Urine Cocaine Screen None Detected None Detect 24 Urine Opiates Screen None Detected None Detect 24 Urine Phencyclidine Screen None Detected None Detect 24, 31 Laboratory test finding 12/10/2016 B-Type Natriuretic Peptide 18 pg/mL 24, 32 BNP Urine DIP 12/02/2016 Leukocytes + Neg Urine Nitrites NEG Neg Urobilinogen NORM Norm Total Protein, Urine TRACE Neg Urine pH 5 5-6 Urine Blood 50 High Neg Specific Council 1.025 High 1.01-1.02 Urine Ketones NEG Neg Urine Bilirubin NEG Neg Urine Glucose NORM Norm Laboratory test 12/02/2016 Urine Culture And SEE RESULT BELOW 33 finding Sensitivities Urine DIP 10/21/2016 Leukocytes 2+ High Neg Urine Nitrites neg Neg Urobilinogen norm Norm Total Protein, Urine trace Neg Urine pH 5 5-6 Urine Blood trace Neg Specific Council 1.010 1.01-1.02 Urine Ketones neg Neg Urine Bilirubin neg Neg Urine Glucose norm Norm Laboratory test 10/21/2016 Urine Culture And SEE RESULT BELOW 34 finding Sensitivities Laboratory test 06/28/2016 T3 Free 2.80 pg/mL 2.5-3.9 35 finding Ferritin 15.1 ng/mL 11-307 36 Iron & Iron Binding Capacity 06/28/2016 Iron 61 g/dL 50-212 Unsaturated Iron Binding 365 g/dL Total Iron Binding Capacity 426 g/dL 250-450 % Iron Saturation 14 % Low 15-55 Laboratory test 05/06/2016 Urine Culture And SEE RESULT BELOW 37 finding Sensitivities Urine DIP 05/06/2016 Leukocytes neg Neg Urine Nitrites neg Neg Urobilinogen norm Norm Total Protein, Urine neg Neg Urine pH 7 High 5-6 Urine Blood trace Neg Specific Council 1.005 Low 1.01-1.02 Urine Ketones neg Neg Urine Bilirubin neg Neg Urine Glucose norm Norm Laboratory test 04/29/2016 Urine Culture And SEE RESULT BELOW 38 finding Sensitivities Urine DIP 04/29/2016 Leukocytes ++ Neg Urine Nitrites neg Neg Urobilinogen norm Norm Total Protein, Urine 30 High Neg Urine pH 8 High 5-6 Urine Blood 250 High Neg Specific Council 1.015 1.01-1.02 Urine Ketones neg Neg Urine Bilirubin neg Neg Urine Glucose norm Norm Laboratory test finding 01/12/2016 TSH (Thyroid Stim Horm) 3.72 ?IU/mL 0.34-5.60 39 T3 Total 0.84 ng/mL Low 0.87-1.78 40 Free T4 (Free Thyroxine) 1.00 ng/dL 0.61-1.12 41 Vitamin B12 706 pg/mL 180-914 42 Urine DIP 01/12/2016 Leukocytes neg Neg Urine Nitrites neg Neg Urobilinogen norm Norm Total Protein, Urine neg Neg Urine pH 5 5-6 Urine Blood 50 High Neg Urine Ketones neg Neg Urine Bilirubin neg Neg Urine Glucose norm Norm Urine DIP 03/24/2015 Specific Council 1.005 Low 1.01-1.02 Urine pH 8 High 5-6 Leukocytes neg Neg Urine Nitrites neg Neg Total Protein, Urine neg Neg Urine Glucose norm Norm Urine Ketones neg Neg Urobilinogen norm Norm Urine Bilirubin neg Neg Urine Blood neg Neg Urine DIP 03/06/2015 Specific Council 1.005 Low 1.01-1.02 Urine pH 8 High 5-6 Leukocytes TRACE Neg Urine Nitrites NEG Neg Total Protein, Urine NEG Neg Urine Glucose NORM Norm Urine Ketones NEG Neg Urobilinogen NORM Norm Urine Bilirubin NEG Neg Urine Blood NEG Neg Laboratory test 03/06/2015 Culture Genital & SEE RESULT BELOW 43 finding Sensitivity Laboratory test 12/16/2013 TSH (Thyroid 4.63 IU/mL 0.34-5.60 finding Stimulating Horm) Lipid Profile 12/16/2013 Triglycerides 109 mg/dL 44 (Trig/Chol/HDL) Cholesterol 179 mg/dL 45 HDL Cholesterol 54.1 mg/dL 46 LDL Cholesterol 103 mg/dL 47 CBC Auto Diff 12/16/2013 White Blood Count 5.6 10^3/uL 4.8-10.8 Red Blood Count 3.91 10^6/uL Low 4.0-5.4 Hemoglobin 12.2 g/dL 12.0-16.0 Hematocrit 36 % 35-47 Mean Corpuscular Volume 91 fL 80-97 Mean Corpuscular Hemoglobin 31 pg 27-31 Mean Corpuscular HGB Conc 35 g/dL 31-36 Red Cell Distribution Width 13 % 10.5-15 Platelet Count 222 10^3/uL 150-450 Mean Platelet Volume 8 um3 7.4-10.4 Abs Neutrophils 3.9 10^3/uL 1.5-7.7 Abs Lymphocytes 1.3 10^3/uL 1.0-4.8 Abs Monocytes 0.3 10^3/uL 0-0.8 Abs Eosinophils 0.1 10^3/uL 0-0.6 Abs Basophils 0 10^3/uL 0-0.2 Abs Nucleated RBC 0 10^3/uL Granulocyte % 68.9 % 38-83 Lymphocyte % 22.5 % Low 25-47 Monocyte % 5.9 % 1-9 Eosinophil % 2.0 % 0-6 Basophil % 0.7 % 0-2 Nucleated Red Blood Cells % 0.1 Comp Metabolic Panel 12/16/2013 Sodium 134 mmol/L 133-145 Potassium 3.9 mmol/L 3.7-5.6 Chloride 100 mmol/L Low 101-111 Co2 Carbon Dioxide 29 mmol/L 22-32 Anion Gap 5 mmol/L 2-11 Glucose 96 mg/dL 70-100 Blood Urea Nitrogen 10 mg/dL 6-24 Creatinine 0.69 mg/dL 0.51-0.95 BUN/Creatinine Ratio 14.5 8-20 Calcium 8.9 mg/dL 8.6-10.3 Total Protein 6.1 g/dL Low 6.4-8.9 Albumin 4.0 g/dL 3.2-5.2 Globulin 2.1 g/dL 2-4 Albumin/Globulin Ratio 1.9 1-3 Total Bilirubin 0.30 mg/dL 0.2-1.0 Alkaline Phosphatase 75 U/L 34-104 Alt 9 U/L 7-52 Ast 16 U/L 13-39 Egfr Non- 85.9 >60 Egfr 110.5 >60 48 Urine DIP 12/16/2013 Specific Council 1.005 Low 1.01-1.02 Urine pH 9 High 5-6 Leukocytes neg Neg Urine Nitrites neg Neg Total Protein, Urine neg Neg Urine Glucose norm Norm Urine Ketones neg Neg Urobilinogen norm Norm Urine Bilirubin neg Neg Urine Blood neg Neg HPV High Risk 12/16/2013 Human Papillomavirus Source See Comment 49 HPV High Risk Type 16, PCR Negative Negative HPV High Risk Type 18, PCR Negative Negative HPV Other Risk types Negative Negative 50 Laboratory test finding 12/16/2013 Cytology RUN DATE: <SEE NOTE> 51 1 SEE RESULT BELOW Name: IVELISSE MATA : [address]: Milagros Hanks MD Acct: [id number] Unit: [id number] AGE: 67 Location: [facility] Re11/18/17 SEX: F Status: REG REF SPEC: [id number] FAVIOLA: 11/18/17-[address] [facility] [address]: Milagros Hanks MD REQ: [id number] RECD: 11/18/175677 STATUS: COMP _ SOURCE: URINE SPDESC: ORDERED: Urine Culture COMMENTS: [id number] Urine Source: Random Procedure Result Reported Site Urine Culture Final 11/21/17- 830 ML Organism 1 ESCHERICHIA COLI [place] Count 25-50,000 (Moderate) CFU/ML 1. ESCHERICHIA COLI M.I.C. RX --------- ------ Ampicillin <=2 S Cefazolin <=4 S Cefepime <=1 S Ceftriaxone <=1 S Ciprofloxacin <=0.25 S Gentamicin <=1 S Levofloxacin <=0.12 S Meropenem <=0.25 S Nitrofurantoin <=16 S Tetracycline <=1 S Pipercillin/Tazobactam <=4 S Trimethoprim/Sulfamethoxazole <=20 S Amoxicillin/Clavulanic Acid <=2 S Aztreonam <=1 S Contact the Microbiology Department for any additional antibiotic reporting. * ML - Main Lab . END OF REPORT DEPARTMENT OF PATHOLOGY, [address] [place] [address] Derrick Machuca M.D. Director [facility] # [id number] 2 The urine specimen was tested at the listed cutoffs: Drug class test level (ng/mL) Amphetamines 500 Barbiturates 200 Benzodiazepine metabolites 200 Cocaine metabolites 150 Cannabinoids 50 Opiates 300 Pcp 25 Specimen was received without chain of custody. Results should be used for medical purposes only. 3 SEE RESULT BELOW Name: IVELISSE MTAA : [address]: Markus Bianchi MD Acct: [id number] Unit: [id number] AGE: 66 Location: [facility] Re09/26/17 SEX: F Status: ADM IN SPEC: [id number] FAVIOLA: 09/26/[address] [facility] [address]: Adonis Leon MD REQ: [id number] RECD: 09/26/17 STATUS: ARMINDA SANTANA DR: Kale Rodríguez PLAYGROUND MONITOR _ SOURCE: URINE SPDESC: ORDERED: Urine Culture Procedure Result Reported Site Urine Culture Final 09/28/17- 920 ML No Growth (<1,000 CFU/mL) * ML - Main Lab . END OF REPORT DEPARTMENT OF PATHOLOGY, [address] [place] [address] Derrick Machuca M.D. Director [facility] # [id number] 4 SEE RESULT BELOW Name: IVELISSE MATA : [address]: Jamey Hensley MD Acct: [id number] Unit: [id number] AGE: 66 Location: ED Re08/30/17 SEX: F Status: DEP ER SPEC: [id number] FAVIOLA: 08/30/[address] [facility] [address]: Sohail Leary MD REQ: [id number] RECD: 08/30/17 STATUS: ARMINDA SANTANA DR: Kale Rodríguez PLAYGROUND MONITOR _ SOURCE: URINE [facility]: ORDERED: Urine Culture Procedure Result Reported Site Urine Culture Final 09/01/17- 07 ML No growth of clinically significant organisms * ML - MAIN LAB ([facility]) . END OF REPORT * ML=Testing performed at Main Lab DEPARTMENT OF PATHOLOGY, [address] [place] [address] Derrick Machuca M.D. Director [facility] # [id number] 5 The urine specimen was tested at the listed cutoffs: Drug class test level (ng/mL) Amphetamines 500 Barbiturates 200 Benzodiazepine metabolites 200 Cocaine metabolites 150 Cannabinoids 50 Opiates 300 Pcp 25 Specimen was received without chain of custody. Results should be used for medical purposes only. 6 Therapeutic concentration: <50 ug/mL Toxic concentration: >120 ug/mL 7 Because ethnic data is not always readily available, this report includes an eGFR for both -Americans and non- Americans. The National Kidney Disease Education Program (NKDEP) does not endorse the use of the MDRD equation for patients that are not between the ages of 18 and 70, are , have extremes of body size, muscle mass, or nutritional status, or are non- or non-. According to the National Kidney Foundation, irrespective of diagnosis, the stage of the disease is based on the level of kidney function: Stage Description GFR(mL/min/1.73 m(2)) 1 Kidney damage with normal or decreased GFR 90 2 Kidney damage with mild decrease in GFR 60-89 3 Moderate decrease in GFR 30-59 4 Severe decrease in GFR 15-29 5 Kidney failure <15 (or dialysis) 8 Because ethnic data is not always readily available, this report includes an eGFR for both -Americans and non- Americans. The National Kidney Disease Education Program (NKDEP) does not endorse the use of the MDRD equation for patients that are not between the ages of 18 and 70, are , have extremes of body size, muscle mass, or nutritional status, or are non- or non-. According to the National Kidney Foundation, irrespective of diagnosis, the stage of the disease is based on the level of kidney function: Stage Description GFR(mL/min/1.73 m(2)) 1 Kidney damage with normal or decreased GFR 90 2 Kidney damage with mild decrease in GFR 60-89 3 Moderate decrease in GFR 30-59 4 Severe decrease in GFR 15-29 5 Kidney failure <15 (or dialysis) 9 COLLECTED FROM 0600 03/30 THROUGH 0745 03/31 10 Osmolality, Urine 164 mOsmol/kg 01 24 hr : 300 - 900 Random: 50 - 1400 After 12hr fluid restriction: >[address] [address] Dir: Adonis Bean MD For inquiries, the physician may contact Branch: [phone] Lab: [phone] 1.00 11 [id number] 13 Because ethnic data is not always readily available, this report includes an eGFR for both -Americans and non- Americans. The National Kidney Disease Education Program (NKDEP) does not endorse the use of the MDRD equation for patients that are not between the ages of 18 and 70, are , have extremes of body size, muscle mass, or nutritional status, or are non- or non-. According to the National Kidney Foundation, irrespective of diagnosis, the stage of the disease is based on the level of kidney function: Stage Description GFR(mL/min/1.73 m(2)) 1 Kidney damage with normal or decreased GFR 90 2 Kidney damage with mild decrease in GFR 60-89 3 Moderate decrease in GFR 30-59 4 Severe decrease in GFR 15-29 5 Kidney failure <15 (or dialysis) 14 [id number] 15 [id number] 16 Desirable <150 Borderline high 150-199 High 200-499 Very High >500 17 Desirable <200 Borderline high 200-239 High >239 18 Low <40 Desirable: 40-60 High: >60 19 Desirable: <100 mg/dL Near Optimal: 100-129 mg/dL Borderline High: 130-159 mg/dL High: 160-189 mg/dL Very High: >189 mg/dL 20 Therapeutic target for the treatment of diabetes Mellitus patients is <7% HBA1C, and in selective patients <6.0%.Please refer to [place] [employer] Diabetic care guidelines for further information. 21 Because ethnic data is not always readily available, this report includes an eGFR for both -Americans and non- Americans. The National Kidney Disease Education Program (NKDEP) does not endorse the use of the MDRD equation for patients that are not between the ages of 18 and 70, are , have extremes of body size, muscle mass, or nutritional status, or are non- or non-. According to the National Kidney Foundation, irrespective of diagnosis, the stage of the disease is based on the level of kidney function: Stage Description GFR(mL/min/1.73 m(2)) 1 Kidney damage with normal or decreased GFR 90 2 Kidney damage with mild decrease in GFR 60-89 3 Moderate decrease in GFR 30-59 4 Severe decrease in GFR 15-29 5 Kidney failure <15 (or dialysis) 22 [id number] 23 Because ethnic data is not always readily available, this report includes an eGFR for both -Americans and non- Americans. The National Kidney Disease Education Program (NKDEP) does not endorse the use of the MDRD equation for patients that are not between the ages of 18 and 70, are , have extremes of body size, muscle mass, or nutritional status, or are non- or non-. According to the National Kidney Foundation, irrespective of diagnosis, the stage of the disease is based on the level of kidney function: Stage Description GFR(mL/min/1.73 m(2)) 1 Kidney damage with normal or decreased GFR 90 2 Kidney damage with mild decrease in GFR 60-89 3 Moderate decrease in GFR 30-59 4 Severe decrease in GFR 15-29 5 Kidney failure <15 (or dialysis) 24 ANXIETY 25 SEE RESULT BELOW Name: ADOLFOIVELISSE : [address]: Adonis Leon MD Acct: [id number] Unit: [id number] AGE: 66 Location: ED Re12/10/16 SEX: F Status: DEP ER SPEC: [id number] FAVIOLA: 12/10/16-[address] [facility] [address]: Adonis Leon MD REQ: [id number] RECD: 12/10/16-4640 STATUS: ARMINDA [facility] DR: [facility] Kale Rodríguez PLAYGROUND MONITOR _ SOURCE: URINE SPDESC: ORDERED: Urine Culture Procedure Result Reported Site Urine Culture Final 12/11/16- 0952 ML Organism 1 STREP GROUP B [place] Count >100,000 (Many) CFU/ML Susceptibility testing of penicillins and other B-lactams approved by FDA for treatment of Streptococcus pyogenes (Group A Strep) and Streptococcus agalactiae (Group B Strep) is not necessary for clinical purposes and need not be done routinely, since as with vancomycin, resistant strains have not been recognized. (CLSI K622-E51;p.66) Positive isolates will be saved for one week. Please call the Microbiology Laboratory if further susceptibility testing is needed. * ML - MAIN LAB ([facility]) . END OF REPORT * ML=Testing performed at Main Lab DEPARTMENT OF PATHOLOGY, [address] [place] [address] Derrick Machuca M.D. Director [facility] # [id number] 26 Therapeutic concentration: <50 ug/mL Toxic concentration: >120 ug/mL 27 Acute inflammation: >10.00 28 99th percentile=0.04 ng/mL Troponin results at [facility] and [facility] are not interchangeable. 29 Because ethnic data is not always readily available, this report includes an eGFR for both -Americans and non- Americans. The National Kidney Disease Education Program (NKDEP) does not endorse the use of the MDRD equation for patients that are not between the ages of 18 and 70, are , have extremes of body size, muscle mass, or nutritional status, or are non- or non-. According to the National Kidney Foundation, irrespective of diagnosis, the stage of the disease is based on the level of kidney function: Stage Description GFR(mL/min/1.73 m(2)) 1 Kidney damage with normal or decreased GFR 90 2 Kidney damage with mild decrease in GFR 60-89 3 Moderate decrease in GFR 30-59 4 Severe decrease in GFR 15-29 5 Kidney failure <15 (or dialysis) 30 Specimen hemolyzed. Result may not be valid. Critical Result LACT:3.4 Called to JUMANA at: 13:46:16 by:[id number] Read back by:JUMANA LEWIS Severe Sepsis and Septic Shock Management Bundle Measure requires all lactic acids initially measuring >2.0 mmol/L be repeated. 31 The urine specimen was tested at the listed cutoffs: Drug class test level (ng/mL) Amphetamines 500 Barbiturates 200 Benzodiazepine metabolites 200 Cocaine metabolites 150 Cannabinoids 50 Opiates 300 Pcp 25 Specimen was received without chain of custody. Results should be used for medical purposes only. 32 >100 to <200 pg/mL: likely compensated congestive heart failure (CHF) 200 to 400 pg/mL: likely moderate CHF >400 pg/mL: likely moderate to severe CHF 33 SEE RESULT BELOW Name: IVELISSE MATA : [address]: Kale Rodríguez NP Acct: [id number] Unit: [id number] AGE: 66 Location: [facility] Re12/02/16 SEX: F Status: REG REF SPEC: [id number] FAVIOLA: 12/02/16-[address]: Kale Rodríguez NP REQ: [id number] RECD: 12/02/16-1800 STATUS: COMP _ SOURCE: URINE SPDESC: ORDERED: Urine Culture COMMENTS: [id number] Urine Source: Random Procedure Result Reported Site Urine Culture Final 12/03/16- 1619 ML Organism 1 STREP GROUP B [place] Count 1-10,000 (Few) CFU/ML Susceptibility testing of penicillins and other B-lactams approved by FDA for treatment of Streptococcus pyogenes (Group A Strep) and Streptococcus agalactiae (Group B Strep) is not necessary for clinical purposes and need not be done routinely, since as with vancomycin, resistant strains have not been recognized. (CLSI C754-P32;p.66) Positive isolates will be saved for one week. Please call the Microbiology Laboratory if further susceptibility testing is needed. * ML - MAIN LAB ([facility]) . END OF REPORT * ML=Testing performed at Main Lab DEPARTMENT OF PATHOLOGY, [address] [place] [address] Derrick Machuca M.D. Director [facility] # [id number] 34 SEE RESULT BELOW Name: IVELISSE MATA : [address]: Kale Rodríguez NP Acct: [id number] Unit: [id number] AGE: 65 Location: [facility] Re10/21/16 SEX: F Status: REG REF SPEC: [id number] FAVIOLA: 10/21/16-155[facility] DR: Kale Rodríguez NP REQ: [id number] RECD: 10/21/16 STATUS: COMP _ SOURCE: URINE [facility]: ORDERED: Urine Culture COMMENTS: [id number] Urine Source: Random Procedure Result Reported Site Urine Culture Final 10/23/16- 08 ML Organism 1 STREP GROUP B [place] Count 1-10,000 (Few) CFU/ML Susceptibility testing of penicillins and other B-lactams approved by FDA for treatment of Streptococcus pyogenes (Group A Strep) and Streptococcus agalactiae (Group B Strep) is not necessary for clinical purposes and need not be done routinely, since as with vancomycin, resistant strains have not been recognized. (CLSI M615-A66;p.66) Positive isolates will be saved for one week. Please call the Microbiology Laboratory if further susceptibility testing is needed. * ML - MAIN LAB ([facility]) . END OF REPORT * ML=Testing performed at Main Lab DEPARTMENT OF PATHOLOGY, [address] [place] [address] Derrick Machuca M.D. Director [facility] # [id number] 35 [id number] 36 [id number] 37 SEE RESULT BELOW Name: IVELISSE MATA : [address]: Milagros Hanks MD Acct: [id number] Unit: [id number] AGE: 65 Location: [facility] Re05/06/16 SEX: F Status: REG REF SPEC: [id number] FAVIOLA: 05/06/16 [facility] [address]: Milagros Hanks MD REQ: [id number] RECD: 05/06/16 STATUS: COMP _ SOURCE: URINE SPDESC: ORDERED: Urine Culture COMMENTS: [id number] Procedure Result Reported Site Urine Culture Final 05/08/16- 820 ML No Growth (<1,000 CFU/mL) * ML - [facility] ([facility]) . END OF REPORT * ML=Testing performed at Main Lab DEPARTMENT OF PATHOLOGY, [address] [place] [address] Derrick Machuca M.D. Director [facility] # [id number] 38 SEE RESULT BELOW Name: IVELISSE MATA : [address]: Kanu Majano III, NP Acct: [id number] Unit: [id number] AGE: 65 Location: [facility] Re04/29/16 SEX: F Status: REG REF SPEC: [id number] FAVIOLA: 04/29/[address]: Kanu Majano III PLAYGROUND MONITOR REQ: [id number] RECD: 04/29/16 STATUS: COMP _ SOURCE: URINE [facility]: ORDERED: Urine Culture COMMENTS: [id number] Procedure Result Reported Site Urine Culture Final 05/01/16721 ML Organism 1 ESCHERICHIA COLI [place] Count 50-75,000 (Many) CFU/ML 1. ESCHERICHIA COLI M.I.C. RX --------- ------ Ampicillin >=32 R Cefazolin <=4 S Cefepime <=1 S Ceftriaxone <=1 S Ciprofloxacin <=0.25 S Gentamicin <=1 S Levofloxacin <=0.12 S Meropenem <=0.25 S Nitrofurantoin <=16 S Tetracycline <=1 S Pipercillin/Tazobactam <=4 S Trimethoprim/Sulfamethoxazole <=20 S Amoxicillin/Clavulanic Acid 4 S Aztreonam <=1 S Contact the Microbiology Department for any additional antibiotic reporting. * ML - MAIN LAB ([facility]) . END OF REPORT * ML=Testing performed at Main Lab DEPARTMENT OF PATHOLOGY, [address] [place] [address] Derrick Machuca M.D. Director [facility] # [id number] 39 [id number] 41 [id number] 42 Normal Range 180 to 914 Indeterminate Range 145 to 180 Deficient Range <145 43 SEE RESULT BELOW Name: IVELISSE MATA : [address]: Kale Rodríguez NP Acct: [id number] Unit: [id number] AGE: 64 Location: [facility] Re03/06/15 SEX: F Status: REG REF SPEC: [id number] FAVIOLA: 03/06/15-[address] [facility] [address]: Kale Rodríguez NP REQ: [id number] RECD: 03/06/15 STATUS: COMP _ SOURCE: RYLAN SPDESC: ORDERED: Genital Culture Procedure Result Verified Site Genital Culture Final 03/08/15- 1314 ML Organism 1 STREP GROUP B Quantity 3+ Organism 2 NORMAL JUSTIN Quantity 1+ Susceptibility testing of penicillins and other B-lactams approved by FDA for treatment of Streptococcus pyogenes (Group A Strep) and Streptococcus agalactiae (Group B Strep) is not necessary for clinical purposes and need not be done routinely, since as with vancomycin, resistant strains have not been recognized. (CLSI A269-S44;p.66) Positive isolates will be saved for one week. Please call the Microbiology Laboratory if further susceptibility testing is needed. * ML - MAIN LAB ([facility]) . END OF REPORT * ML=Testing performed at Main Lab DEPARTMENT OF PATHOLOGY, [address] [place] [address] Derrick Machuca M.D. Director [facility] # [id number] 44 Desirable <150 Borderline high 150-199 High 200-499 Very High >500 45 Desirable <200 Borderline high 200-239 High >239 46 Low <40 Desirable: 40-60 High: >60 47 Desirable <100 Near Optimal 100-129 Borderline high 130-159 High 160-189 Very High >189 48 Because ethnic data is not always readily available, this report includes an eGFR for both -Americans and non- Americans. The National Kidney Disease Education Program (NKDEP) does not endorse the use of the MDRD equation for patients that are not between the ages of 18 and 70, are , have extremes of body size, muscle mass, or nutritional status, or are non- or non-. According to the National Kidney Foundation, irrespective of diagnosis, the stage of the disease is based on the level of kidney function: Stage Description GFR(mL/min/1.73 m(2)) 1 Kidney damage with normal or decreased GFR 90 2 Kidney damage with mild decrease in GFR 60-89 3 Moderate decrease in GFR 30-59 4 Severe decrease in GFR 15-29 5 Kidney failure <15 (or dialysis) 49 RESULT: Ectocervical/Endocervical 50 The following Other High Risk HPV types were not detected: 31, 33, 35, 39, 45, 51, 52, 56, 58, 59, 66, and 68 Test Performed by: [place] [address] Field Secretary: Ismael Ryan III, M.D. 51 RUN DATE: 12/17/13 [facility] LAB LIVE PAGE 1 RUN TIME: [address] [place] [address] Specimen Inquiry Name: ISIDROAMALIA GriffithsA : [address]: Kale Rodríguez NP Acct: [id number] Unit: [id number] AGE: 63 Location: [facility] Re12/16/13 SEX: F Status: REG REF SPEC: [id number] FAVIOLA: 12/16/13-[address] [facility] [address]: Kale Rodríguez NP REQ: [id number] RECD: 12/16/13636 STATUS: SOUT _ ORDERED: IMAGE ANALYSIS, HPV/Thin Prep FINAL DIAGNOSIS Negative for Intraepithelial lesion or Malignancy COMMENTS: Specimen sent to [facility] in [place], [place] on 12/17/13 by [id number] at 1009. Results will be reported separately. A. Ectocervical/Endocervical Specimen Adequacy: Satisfactory of evaluation Transformation zone component identified Patient Information: HPV: High risk HPV DNA testing regardless of pap results. Actual Specimen Date: 12/16/13 Post Menopausal?: Y Signed (signature on file) MARK Beck (ASCP) 12/17/13 0307 This Pap test was evaluated with the assistance of the Spinal RestorationPrep Test Imaging System. Due to cytologic findings at the travel registered nurse icu microscope, comprehensive manual rescreening by a Lottery Clerk may be required. The Pap Smear is a screening test designed to aid in the detection of premalignant and malignant conditions of the uterine cervix. It is not a diagnostic procedure and should not be used as the sole means of detecting cervical cancer. Both false- positive and false- negative reports do occur. Depending on your risk status, a Pap smear shoudl be obtained and evaluated every 1-3 years. END OF REPORT * ML=Testing performed at Main Lab DEPARTMENT OF PATHOLOGY, [address] [place] [address] Derrick Machuca M.D. Director [facility] # [id number] Procedures Date CPT Code Description Status 12/16/2013 12563 EKG, at Least 12 Leads w/Interpretation and Report Completed 12/16/2013 24497 EKG, at Least 12 Leads w/Interpretation and Report Completed Encounters Type Date Location Provider CPT E/M Dx Office Visit 12/12/2017 4:15p [facility] Ajaywnti R. Marcos, MANAGER PHYSICAL-C 41747 I10 Office Visit 11/23/2017 2:45p Main Office Shawnti R. Marcos, MANAGER PHYSICAL-C 62253 I10 F32.89 Office Visit 11/18/2017 10:30a Main Office Milagros Hanks M.D., [place] 73144 N39.0 Office Visit 10/23/2017 2:30p Main Office Shawnti R. Marcos, MANAGER PHYSICAL-C 29654 K59.00 I10 Office Visit 03/27/2017 4:00p Main Office Shawnti R. Marcos, MANAGER PHYSICAL-C 71611 E87.1 K59.00 F32.89 Office Visit 12/29/2016 3:15p Main Office Shawnti R. Marcos, MANAGER PHYSICAL-C 32731 D64.9 E87.1 F32.89 Office Visit 12/02/2016 2:15p Main Office Shawnti R. Marcos, MANAGER PHYSICAL-C 23827 N39.0 F41.9 Office Visit 11/25/2016 11:15a Main Office Shawnti R. Marcos, MANAGER PHYSICAL-C 64207 F41.9 Office Visit 11/18/2016 4:30p Main Office Shawnti R. Storm, MANAGER PHYSICAL-C 11577 F41.9 Office Visit 10/21/2016 3:00p Main Office Shawnti R. Storm, MANAGER PHYSICAL-C 05135 N39.0 Office Visit 08/01/2016 4:00p Main Office Shawnti R. Marcos, MANAGER PHYSICAL-C 40352 F41.9 Office Visit 06/28/2016 3:00p Main Office Shawnti R. Marcos, MANAGER PHYSICAL-C 61733 F41.9 R53.83 Office Visit 04/29/2016 4:15p Main Office Kanu Majano III, MANAGER PHYSICAL-C 38232 N39.0 Office Visit 04/26/2016 2:30p Main Office Shawnti R. Marcos, MANAGER PHYSICAL-C 67359 F41.9 Office Visit 03/15/2016 3:00p Main Office Shawnti R. Marcos, MANAGER PHYSICAL-C 63794 F41.9 S39.012A Office Visit 02/12/2016 2:30p Main Office Shawnti R. Storm, MANAGER PHYSICAL-C 22594 F41.9 Office Visit 01/12/2016 3:00p Main Office Shawnti R. Storm, MANAGER PHYSICAL-C 53294 F41.9 Office Visit 12/11/2015 3:15p Main Office Shawnti R. Storm, MANAGER PHYSICAL-C 14006 F41.9 Office Visit 11/26/2015 3:45p Main Office Shawnti R. Storm, MANAGER PHYSICAL-C 08725 F41.9 Office Visit 11/12/2015 2:30p Main Office Shawnti R. Storm, MANAGER PHYSICAL-C 27382 F41.9 B02.9 Office Visit 11/05/2015 4:30p Main Office Shawnti R. Storm, MANAGER PHYSICAL-C 14629 F41.9 G47.00 Office Visit 10/27/2015 2:45p Main Office Shawnti R. Storm, MANAGER PHYSICAL-C 95201 F41.9 Office Visit 10/20/2015 10:15a Main Office Shawnti R. Marcos, MANAGER PHYSICAL-C 47369 F41.9 Office Visit 03/24/2015 1:30p Main Office Shawnti R. Marcos, MANAGER PHYSICAL-C 16747 Z00.01 R03.0 Office Visit 03/06/2015 10:30a Main Office Shawnti R. Marcos, MANAGER PHYSICAL-C 51849 616.10 Office Visit 12/16/2013 1:30p Main Office Shawnti R. Storm, MANAGER PHYSICAL-C 23679 V70.0 V72.62 Office Visit 11/27/2008 1:45p Main Office Shawnti R. Marcos, MANAGER PHYSICAL-C 43379 088.81 Plan of Care 01/04/2018 - Ajaywnti R. Storm, MANAGER PHYSICAL-CI10 Essential (primary) hypertensionNew Labs :Basic Metabolic PanelStatinComments:increase metoprolol to 50mg twice dailyFollow up:one month .... fasting labs
--- NOTE | 2018-01-28 19:38 | ED ---
Psychiatric Complaint - HPI Summary HPI Summary: This is shreyas Hogue documenting for Dr. Holger Jeffers MD. Pt is a 67 y/o F brought to ED by and followed by a police escort. She states that she had suicidal ideation with a plan to jump off the bridge at [facility], and that the thoughts began today. Feels hopeless at the level of care she is getting at [facility] and she had an appointment on Monday. Her psychiatrist is Dr. Espinoza. PMHx of suicide attempt one year ago, depression, anxiety, and insomnia and takes medications for these issues. Denies smoking or drinking alcohol. - History Of Current Complaint Chief Complaint: EDMentalHealth Time Seen by Provider: 01/28/18 18:22 Hx Obtained From: Patient Severity Currently: Mild Character: Depressed Related History: Positive For: Prior Psychiatric Issues Has Suicidal: Reports: Thoughts, With A Plan - Allergies/Home Medications Allergies/Adverse Reactions: Allergies Allergy/AdvReac Type Severity Reaction Status Date / Time No Known Allergies Allergy Verified 01/28/18 18:08 Home Medications: Home Medications Metoprolol Tartrate TAB* [Lopressor TAB*] 25 mg PO BID 01/28/18 [History Confirmed 01/28/18] Venlafaxine EXT RELEASE CAP* [Effexor Xr CAP*] 225 mg PO DAILY 01/28/18 [ History Confirmed 01/28/18] PMH/Surg Hx/FS Hx/Imm Hx Cardiovascular History: Reports: Hx Hypertension GI History: Comment Only: Other GI Disorders - constipation Sensory History: Reports: Hx Contacts or Glasses Denies: Hx Hearing Aid Opthamlomology History: Reports: Hx Contacts or Glasses Psychiatric History: Reports: Hx Anxiety - social anxiety, Hx Depression, Hx Panic Disorder, Hx Post Traumatic Stress Disorder, Hx Inpatient Treatment, Hx Community Mental Health Tx, Hx Suicide Attempt Denies: Hx Eating Disorder - Surgical History Surgery Procedure, Year, and Place: WRIST SURGERIES (2) (one to cauterize artery ) Infectious Disease History: No Infectious Disease History: Denies: Traveled Outside the [place] in Last 30 Days - Family History Known Family History: Positive: Unknown - Patient denies pertinent family medical history. Family History: Patient denies pertinent family medical history. - Social History Alcohol Use: None Substance Use Type: Reports: None Smoking Status (MU): Former Smoker Have You Smoked in the Last Year: No Review of Systems Negative: Fever Positive: Depressed, Other - SI All Other Systems Reviewed And Are Negative: Yes Physical Exam - Summary Physical Exam Summary: VITAL SIGNS: Reviewed. GENERAL: Patient is a well-developed and nourished female who is lying comfortable in the stretcher. Patient is not in any acute respiratory distress. HEAD AND FACE: No signs of trauma. No ecchymosis, hematomas or skull depressions. No sinus tenderness. EYES: PERRLA, EOMI x 2, No injected conjunctiva, no nystagmus. EARS: Hearing grossly intact. Ear canals and tympanic membranes are within normal limits. MOUTH: Oropharynx within normal limits. NECK: Supple, trachea is midline, no adenopathy, no JVD, no carotid bruit, no c- spine tenderness, neck with full ROM. CHEST: Symmetric, no tenderness at palpation LUNGS: Clear to auscultation bilaterally. No wheezing or crackles. CVS: Regular rate and rhythm, S1 and S2 present, no murmurs or gallops appreciated. ABDOMEN: Soft, non-tender. No signs of distention. No rebound no guarding, and no masses palpated. Bowel sounds are normal. EXTREMITIES: FROM in all major joints, no edema, no cyanosis or clubbing. NEURO: Alert and oriented x 3. No acute neurological deficits. Speech is normal and follows commands. SKIN: Dry and warm PSYCH: Depressed and quiet. No homicidal thoughts or plan. No signs of psychosis or pressure speech. No tangential speech. Triage Information Reviewed: Yes Vital Signs On Initial Exam: Initial Vitals Temp Pulse Resp BP Pulse Ox 97.9 F 66 14 118/60 100 01/28/18 18:08 01/28/18 18:08 01/28/18 18:08 01/28/18 18:08 01/28/18 18:08 Vital Signs Reviewed: Yes Diagnostics - Vital Signs Vital Signs Temp Pulse Resp BP Pulse Ox 01/28/18 18:08 97.9 F 66 14 118/60 100 - Laboratory Lab Results: Lab Results 01/28/18 01/28/18 Range/Units 18:47 18:47 WBC 6.2 (3.5-10.8) 10^3/ul RBC 4.11 (4.00-5.40) 10^6/ul Hgb 13.3 (12.0-16.0) g/dl Hct 38 (35-47) % MCV 93 (80-97) fL MCH 32 H (27-31) pg MCHC 35 (31-36) g/dl RDW 13 (10.5-15) % Plt Count 255 (150-450) 10^3/ul MPV 6.5 L (7.4-10.4) um3 Neut % (Auto) 78.2 (38-83) % Lymph % (Auto) 14.9 L (25-47) % [place] % (Auto) 5.4 (0-7) % Eos % (Auto) 0.8 (0-6) % Baso % (Auto) 0.7 (0-2) % Absolute Neuts (auto) 4.9 (1.5-7.7) 10^3/ul Absolute Lymphs (auto) 0.9 L (1.0-4.8) 10^3/ul Absolute Monos (auto) 0.3 (0-0.8) 10^3/ul Absolute Eos (auto) 0.1 (0-0.6) 10^3/ul Absolute Basos (auto) 0 (0-0.2) 10^3/ul Absolute Nucleated RBC 0 10^3/ul Nucleated RBC % 0 Sodium 128 L (135-145) mmol/L Potassium 4.1 (3.5-5.0) mmol/L Chloride 92 L (101-111) mmol/L Carbon Dioxide 29 (22-32) mmol/L Anion Gap 7 (2-11) mmol/L BUN 8 (6-24) mg/dL Creatinine 0.70 (0.51-0.95) mg/dL Est GFR ( Amer) 101.0 (>60) Est GFR (Non-Af Amer) 83.5 (>60) BUN/Creatinine Ratio 11.4 (8-20) Glucose 115 H (70-100) mg/dL Calcium 9.1 (8.6-10.3) mg/dL Total Bilirubin 0.50 (0.2-1.0) mg/dL AST 20 (13-39) U/L ALT 12 (7-52) U/L Alkaline Phosphatase 93 (34-104) U/L Total Protein 7.1 (6.4-8.9) g/dL Albumin 4.5 (3.2-5.2) g/dL Globulin 2.6 (2-4) g/dL Albumin/Globulin Ratio 1.7 (1-3) TSH 5.37 (0.34-5.60) mcIU/mL Salicylates < 2.50 (<30) mg/dL Acetaminophen < 15 mcg/mL Serum Alcohol < 10 (<10) mg/dL Result Diagrams: 01/28/18 18:47 01/28/18 18:47 Lab Statement: Any lab studies that have been ordered have been reviewed, and results considered in the medical decision making process. Course/Dx - Course Assessment/Plan: Patient is medically clear. Patient and is awaiting for mental health evaluation. Patient is signed out to Dr. Sanders for at shift change he will follow with the recommendations from the mental health ablation. - Differential Dx/Clinical Impression Provider Diagnosis: Depression Discharge - Sign-Out/Discharge Documenting (check all that apply): Sign-Out Patient Signing out patient TO: Bj Johnson - Awaiting MHE - Discharge Plan Referrals: Kale Rodríguez REACH TRUCK OPERATOR [Primary Care Provider] -
[2018-01-28] MEDS ORDERED: clonazePAM TAB(*) 0.5 MG PO ONE (21:09)
[2018-01-28] MEDS ORDERED: Metoprolol Tartrate TAB* 25 MG PO ONE (21:09)
[2018-01-28 23:28] VITALS: BP 151/97
--- NOTE | 2018-01-28 23:44 | ED ---
Progress - Consult/PCP Time Called: 19:00 Course/Dx - Course Course Of Treatment: A 67 y/o female VARINDERP presents to ED s/p SI. No laboratory scans were done. In the ED course, the patient recieved Klonopin and Lopressor. Patient care was discussed with Dr. Roldan who recommends discharge. The patient is to follow up with [facility]. The patient visits the clinic 5 times a week as she is in the prost program. Pt will be discharged with a diagnosis of depression. Pt is agreeable with this plan. - Diagnoses Provider Diagnoses: Depression - Provider Notifications Discussed Care Of Patient With: Radhika Roldan Time Discussed With Above Provider: 23:00 Discharge - Sign-Out/Discharge Documenting (check all that apply): Patient Departure - DISCHARGE - Discharge Plan Condition: Stable Disposition: HOME Patient Education Materials: Depression (ED) Referrals: [facility] [Outside] - As Soon As Possible (Continue to attend PRO's program daily and meet with your therapist as scheduled.) Kale Rodríguez, FILL PLANT OPERATOR [Primary Care Provider] - Additional Instructions: RETURN TO ED FOR ANY NEW OR WORSENING SYMPTOMS.
== END 2018-01-28 23:30 | disposition home or self-care (01) ==
LOC: ED 18:04
DX: F32.9 Major depressive disorder, single episode, unspecified (principal); F41.9 Anxiety disorder, unspecified; G47.00 Insomnia, unspecified; Z79.899 Other long term (current) drug therapy; Z91.5 Personal history of self-harm; Z87.891 Personal history of nicotine dependence
CPT/HCPCS: 36415; 80053; 80320; 80329; 84443; 85025; 99285; G0480